=== PATIENT | male | born 1995 | race Caucasian/White ===

== ENCOUNTER 2018-07-13 06:38 | Emergency (ER) | payer MEDICAID ==
[~2018-07-13] VITALS: Ht 172.7 cm; Wt 77.6 kg
[2018-07-13 06:40] VITALS: BP 135/72; PULSE 82; RESP 20; Ht 172.7 cm; Wt 77.6 kg
[2018-07-13] MEDS ORDERED: CEPH-443 PO (07:13)
--- NOTE | 2018-07-13 09:10 | ERD ---
ER Documentation Chief Complaint Chief Complaint Patient thinks he has a spider bite to right index finger HPI Patient is a 23-year-old male with no medical problems who presents with "bug bite". He said that 2 days ago he had swelling to the right second finger over the joint. He said that there was something that looked like a pimple and he placed pus out of it. It is red around the area. He has had no treatment as of yet. He has no fevers. He is right-handed. There is no streaking. ROS All systems reviewed and are negative except as per history of present illness. Medications Home Meds Active Scripts Cephalexin* (Keflex*) 500 Mg Capsule, 500 MG PO QID for 7 Days, CAP Prov:CARLITO DEVLIN MD 07/13/18 Allergies Allergies: Coded Allergies: No Known Allergy (Unverified , 07/13/18) PMhx/Soc Medical and Surgical Hx: pt denies Medical Hx, pt denies Surgical Hx Hx Alcohol Use: Yes Hx Substance Use: No Hx Tobacco Use: No Smoking Status: Never smoker FmHx Family History: diabetes Physical Exam Vitals Vital Signs Date Temp Pulse Resp B/P (MAP) Pulse Ox O2 O2 Flow FiO2 Time Delivery Rate 07/13/18 98.5 82 20 135/72 99 06:40 (93) Physical Exam Const: No acute distress Head: Atraumatic Eyes: Normal Conjunctiva ENT: Normal External Ears, Nose and Mouth. Neck: Full range of motion. No meningismus. Resp: Clear to auscultation bilaterally Cardio: Regular rate and rhythm, no murmurs Abd: Soft, non tender, non distended. Normal bowel sounds Skin: Erythema to the right second finger without signs of tenosynovitis or streaking Back: No midline or flank tenderness Ext: No cyanosis, or edema Neur: Awake and alert Psych: Normal Mood and Affect Procedures/MDM Patient is a 23-year-old male who presents with abscess with cellulitis. The patient has a small area to the right second digit but no signs of flexor tenosynovitis or necrotizing fasciitis at this time. The patient will be given a prescription for Keflex for 7 days. He can return for any worsening symptoms. He already was able to open the wound and placed pus out. He does not require incision and drainage. Departure Diagnosis: Primary Impression: Abscess Condition: Fair Patient Instructions: Abscess, Antiobiotic Treatment Only Referrals: [facility], [facility] YOU HAVE RECEIVED A MEDICAL SCREENING EXAM AND THE RESULTS INDICATE THAT YOU DO NOT HAVE A CONDITION THAT REQUIRES URGENT TREATMENT IN THE EMERGENCY DEPARTMENT. FURTHER EVALUATION AND TREATMENT OF YOUR CONDITION CAN WAIT UNTIL YOU ARE SEEN IN YOUR DOCTORS OFFICE WITHIN THE NEXT 1-2 DAYS. IT IS YOUR RESPONSIBILITY TO MAKE AN APPOINTMENT FOR FOLOW-UP CARE. IF YOU HAVE A PRIMARY DOCTOR --you should call your primary doctor and schedule an appointment IF YOU DO NOT HAVE A PRIMARY DOCTOR YOU CAN CALL OUR PHYSICIAN REFERRAL HOTLINE AT IF YOU CAN NOT AFFORD TO SEE A PHYSICIAN YOU CAN CHOSE FROM THE FOLLOWING [facility] [address] [facility]. [facility] [address] [facility] [address] [facility] [facility] [address] [facility]. [facility] [address] [facility]. [facility]. [address] Additional Instructions: Call your primary care doctor TOMORROW for an appointment during the next 1-2 days.See the doctor sooner or return here if your condition worsens before your appointment time. CARLITO DEVLIN MD Jul 13, 2018 09:10
== END 2018-07-13 07:21 | disposition home or self-care (01) ==
LOC: FTE 06:38
DX: L02.511 Cutaneous abscess of right hand (principal)
CPT/HCPCS: 99283